=== PATIENT | female | born 1975 | race Two or more races ===

== ENCOUNTER 2023-10-12 05:36 | Day surgery (SDC) | payer OTHER ==
[~2023-10-12 05:36] MED LIST: ECOTRIN81 MG PO; ZYRTEC10 MG PO
== END 2023-10-12 07:40 | disposition home or self-care (01) ==
LOC: CIR.AMB 05:36
PROVIDERS: ATTEND Obstetrics & Gynecology Gynecology
DX: T83.711A Erosion of implanted vaginal mesh to surrounding organ or tissue, initial encounter (principal); Z53.8 Procedure and treatment not carried out for other reasons

== ENCOUNTER 2023-10-19 05:15 | Day surgery (SDC) | payer OTHER ==
[2023-10-19] MEDS ORDERED: MACROBID 100 M100 MG PO (10:34)
== END 2023-10-19 13:40 | disposition home or self-care (01) ==
LOC: CIR.AMB 05:15
PROVIDERS: ATTEND Obstetrics & Gynecology Gynecology
DX: T83.711A Erosion of implanted vaginal mesh to surrounding organ or tissue, initial encounter (principal); N39.0 Urinary tract infection, site not specified; Z20.822 Contact with and (suspected) exposure to COVID-19; I10 Essential (primary) hypertension; R07.9 Chest pain, unspecified

== ENCOUNTER 2025-10-23 07:00 | Day surgery (SDC) | payer OTHER ==
[2025-10-15 13:09] VITALS: BP 138/78
[~2025-10-23] VITALS: Ht 172.7 cm; Wt 99.8 kg
[~2025-10-23 07:00] MED LIST changes: +MACROBID 100 M100 MG PO
[2025-10-23] MEDS ORDERED: CEFAZOLIN SODIUM 1,000 MG VIAL ONE (07:06)
[2025-10-23] MEDS ORDERED: MACROBID 100 M100 MG PO (11:07)
== END 2025-10-23 15:30 | disposition home or self-care (01) ==
LOC: CIR.AMB 07:00
PROVIDERS: ATTEND Obstetrics & Gynecology Gynecology
DX: T83.712A Erosion of implanted urethral mesh to surrounding organ or tissue, initial encounter (principal)